=== PATIENT | male | born 1985 | race Caucasian/White ===

== ENCOUNTER 2022-12-03 11:32 | Emergency (ER) | payer OTHER ==
[~2022-12-03] VITALS: Ht 165.1 cm; Wt 90.0 kg
[2022-12-03 13:54] VITALS: BP 133/68
== END 2022-12-03 13:57 | disposition home or self-care (01) ==
LOC: EMS 11:37
DX: N47.1 Phimosis (principal)
CPT/HCPCS: 99283; Z7502